=== PATIENT | female | born 1990 | race Caucasian/White ===

== ENCOUNTER 2024-01-28 06:21 | Day surgery (SDC) | payer OTHER ==
[~2024-01-28 06:21] MED LIST: Sodium Chloride 0.9% 10 ML Syringe FLUSH PRN
[2024-01-28] MEDS ORDERED: Propofol 200 MG/20 ML SDV ONE ×7 (06:24→09:09)
[2024-01-28] MEDS ORDERED: fentaNYL 250 MCG/5 ML SDV ONE (06:25)
[2024-01-28] MEDS ORDERED: Midazolam 1 MG/ML 2 ML SDV ONE (06:26)
[2024-01-28] MEDS ORDERED: ceFAZolin 2 GM Vial ONE (06:26)
[2024-01-28] MEDS ORDERED: Rocuronium 50 MG/5 ML Vial ONE (06:28)
[2024-01-28] MEDS ORDERED: Ondansetron 4 MG/2 ML SDV ONE ×2 (06:30→06:35)
[2024-01-28] MEDS ORDERED: diphenhydrAMINE 50 MG/ML SDV ONE (06:31)
[2024-01-28] MEDS ORDERED: Ketorolac 30 MG/ML SDV ONE (06:31)
[2024-01-28] MEDS ORDERED: Dexamethasone 4 MG/ML 5 ML MDV ONE (06:31)
[2024-01-28] MEDS ORDERED: dexmedeTOMIDine HCl 200 MCG/2 ML SDV ONE (06:31)
[2024-01-28] MEDS: Lactated Ringers 1,000 ML IV SCH (06:45)
[2024-01-28] MEDS: Celecoxib 100 MG Cap PO SCH (06:54)
[2024-01-28] MEDS: Phenazopyridine 95 MG Tab PO SCH (06:55)
[2024-01-28] MEDS: Gabapentin 300 MG Cap PO SCH (06:55)
[2024-01-28] MEDS: Acetaminophen 325 MG Tab PO SCH (06:55)
[2024-01-28 07:02] LABS: BASOPHILS PERCENT AUTO 0.4 % (0.0-1.0); EOSINOPHILS ABSOLUTE AUTO 0.5 K/mm3 (0.0-0.4); EOSINOPHILS PERCENT AUTO 4.8 % (0.0-6.0); HEMATOCRIT 36.5 % (37.0-47.0); HEMOGLOBIN 12.3 gm/dl (12.0-16.0); IMMATURE GRAN ABSOLUTE AUTO 0.02 K/mm3 (0.00-0.05); IMMATURE GRAN PERCENT AUTO 0.2 % (0.0-0.4); LYMPHOCYTES ABSOLUTE AUTO 2.7 K/mm3 (1.0-4.8); LYMPHOCYTES PERCENT AUTO 28.4 % (24.0-44.0); MEAN CORPUSCULAR HGB CONC 33.7 g/dl (32.0-36.0); MEAN PLATELET VOLUME 9.3 fl (9.4-12.3); MONOCYTES ABSOLUTE AUTO 0.5 K/mm3 (0.0-0.8); MONOCYTES PERCENT AUTO 5.5 % (0.0-8.0); NEUTROPHILS ABSOLUTE AUTO 5.8 K/mm3 (1.8-7.7); NEUTROPHILS PERCENT AUTO 60.7 % (41.0-71.0); PLATELET COUNT,PLT 269 K/mm3 (150-400); WHITE BLOOD CELL COUNT,WBC 9.53 K/mm3 (3.9-11.3)
[2024-01-28 07:14] LABS: ANION GAP 13.8 (5-15); CALCIUM 8.6 mg/dL (8.5-10.1); EST CRCL DRUG DOSING (CG) 73.51 mL/min; POTASSIUM,K 3.8 mEq/L (3.5-5.1)
[2024-01-28] MEDS ORDERED: Lidocaine 1% with EPINEPHrine 1:100,000 20 ML MDV ONE (07:18)
[2024-01-28] MEDS ORDERED: HYDROmorphone 0.5 MG/0.5 ML Syringe ONE ×4 (08:08→08:33)
[2024-01-28] MEDS: Lidocaine 1% with EPINEPHrine 1:100,000 20 ML MDV ONE (08:10)
[2024-01-28] MEDS ORDERED: Sugammadex Sodium 200 MG/2 ML VIAL IV ONE (08:13)
[2024-01-28] MEDS ORDERED: Lactated Ringers 1,000 ML ONE (08:17)
[2024-01-28] MEDS ORDERED: Sodium Chloride 0.9% 10 ML Syringe FLUSH SCH (09:00)
[2024-01-28] MEDS ORDERED: HYDROmorphone 0.5 MG/0.5 ML Syringe IVPUSH PRN (09:55)
[2024-01-28] MEDS ORDERED: fentaNYL 100 MCG/2 ML SDV IVPUSH PRN (09:55)
[2024-01-28] MEDS: oxyCODONE 5 MG Tab PO PRN (10:58)
== END 2024-01-28 12:17 | disposition home or self-care (01) ==
LOC: JD.SDS 06:21
PROVIDERS: ATTEND Obstetrics & Gynecology
DX: N80.03 Adenomyosis of the uterus (principal); N83.8 Other noninflammatory disorders of ovary, fallopian tube and broad ligament; Z88.2 Allergy status to sulfonamides
CPT/HCPCS: 00944; 36415; 80048; 81025; 85025; 86850; 86900; 86901; A9270-GY; J0690; J1100; J1170; J1200; J1885; J2250; J2405; J2704; J3010; J3490; J7120